=== PATIENT | female | born 2000 | race Hispanic/Latino ===

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

== ENCOUNTER 2023-07-17 20:46 | Emergency (ER) | payer MEDICAID ==
[~2023-07-17] VITALS: Ht 154.9 cm; Wt 89.4 kg
[~2023-07-17 20:46] MED LIST changes: +ACET325T51 PO; +AMOX500C2 PO; +ERYT1OIN7 OP
[2023-07-17 21:22] LABS: BASOPHILS # (AUTO) 0.03 K/uL (0.00-0.20); BASOPHILS % (AUTO) 0.6 % (0.0-5.0); EOSINOPHILS # (AUTO) 0.16 K/uL (0.00-0.70); EOSINOPHILS % (AUTO) 3.4 % (0.0-8.0); HEMATOCRIT 41.2 % (36-48); IMMATURE GRANULOCYTE ABSOLUTE 0.01 K/uL (0-1); LYMPHOCYTES # (AUTO) 1.7 K/uL (1.0-4.8); MEAN CORPUSCULAR HEMOGLOBIN 31.5 pg (27.0-33.0); MEAN CORPUSCULAR HGB CONC 35.7 g/dL (32.0-36.0); MEAN CORPUSCULAR VOLUME 88.2 fL (80-100); MONOCYTES # (AUTO) 0.6 K/uL (0.1-1.0); NEUTROPHILS # (AUTO) 2.2 K/uL (1.8-7.7); NEUTROPHILS % (AUTO) 46.8 % (40.0-77.0); PLATELET COUNT (AUTO) 254 K/uL (130-400); RED BLOOD CELL COUNT(AUTO) 4.67 MIL/uL (4.00-5.50); RED CELL DISTRIBUTION WIDTH 12.8 % (11.0-15.5); WHITE BLOOD COUNT (AUTO) 4.7 K/uL (4.8-10.8)
[2023-07-17 21:31] LABS: CREATININE 0.7 mg/dL (0.5-1.0); POTASSIUM 3.5 mmol/L (3.5-5.1)
[2023-07-17 21:34] LABS: APPEARANCE,URINE CLEAR (CLEAR); COLOR,URINE YELLOW (YELLOW)
[2023-07-17 21:35] LABS: ALBUMIN 3.6 g/dL (3.5-5.0); BILIRUBIN,TOTAL 0.5 mg/dL (0.2-1.0); GLUCOSE, URINE (UA) NEGATIVE (NEGATIVE); OCCULT BLOOD,URINE LARGE (NEGATIVE); PROTEIN,URINE TRACE mg/dL (NEGATIVE); TOTAL PROTEIN, SERUM 7.7 g/dL (6.0-8.3)
[2023-07-17 21:36] LABS: ADD UA MICROSCOPIC YES; BILIRUBIN,URINE SMALL mg/dL (NEGATIVE); KETONES,URINE TRACE mg/dL (NEGATIVE); LEUKOCYTE ESTERASE ,URINE NEGATIVE Leu/uL (NEGATIVE); NITRATE,URINE NEGATIVE (NEGATIVE)
[2023-07-17 21:37] LABS: HCG,QUALITATIVE URINE NEGATIVE (NEGATIVE)
[2023-07-17 21:47] VITALS: BP 119/73; PULSE 82; RESP 20; O2SAT 99
[2023-07-17 21:48] LABS: BACTERIA,URINE Rare /HPF (None Seen); WBC,URINE 0-1 /HPF (0-1)
[2023-07-17 21:49] LABS: SQUAMOUS EPITHELIAL CELL,UR Few /HPF (0-2)
[2023-07-17] MEDS ORDERED: OMEP40CA21 PO (22:00)
[2023-07-17] MEDS ORDERED: ONDA-104 PO (22:00)
== END 2023-07-17 22:10 | disposition home or self-care (01) ==
LOC: EDH 20:46
DX: K29.00 Acute gastritis without bleeding (principal); Z79.899 Other long term (current) drug therapy
CPT/HCPCS: 36415; 80053; 81001; 81025; 83690; 85025

== ENCOUNTER 2025-02-07 17:50 | Emergency (ER) | payer MEDICAID ==
[~2025-02-07] VITALS: Ht 152.4 cm; Wt 97.3 kg
[~2025-02-07 17:50] MED LIST changes: +ACET-3859 PO; -ACET325T51 PO; +OMEP40CA21 PO; +ONDA-104 PO
[2025-02-07 17:53] VITALS: BP 113/75; PULSE 111; RESP 18; TEMP 98.2
[2025-02-07] MEDS: BENZONATATE 100 MG CAPSULE PO STA (18:18)
[2025-02-07 18:19] LABS: SARS-CoV-2, RNA, NAAT NEGATIVE SARS CoV-2 (NEGATIVE)
[2025-02-07 18:20] VITALS: TEMP 98.8
[2025-02-07 18:24] LABS: INFLUENZA TYPE A Negative For Type A (NEGATIVE); INFLUENZA TYPE B Negative For Type B (NEGATIVE)
--- NOTE | 2025-02-07 18:45 | ERN ---
ED Note History of Present Illness Stated Complaint: COUGH Chief Complaint: Cough Time Seen by MD: 17:54 Time Seen by Midlevel: 18:00 Dictation: 24-year-old female coming in with complaints of cough, congestion, headache for the last four days. Denies any fever, nausea vomiting or diarrhea. Allergies: Coded Allergies: No Known Drug Allergies (Unverified Allergy, Unknown, 04/19/19) Home Meds Active Scripts Omeprazole (Omeprazole) 40 Mg Capsule.dr, 40 MG PO DAILY, #30 CAP Prov:YOANDY SEYMOUR MD 07/17/23 Ondansetron HCl (Ondansetron HCl) 4 Mg Tablet, 4 MG PO TIDP PRN for VOMITING, #20 TAB Prov:YOANDY SEYMOUR MD 07/17/23 Acetaminophen (Acetaminophen) 325 Mg Tablet, 650 MG PO Q4PRN PRN for PAIN, #50 TAB Prov:YOANDY SEYMOUR MD 03/16/22 Amoxicillin (Amoxicillin) 500 Mg Capsule, 500 MG PO TID for 10 Days, #30 CAP 0 Refills Prov:YOANDY SEYMOUR MD 03/16/22 Erythromycin Base (Erythromycin) 1 Gm Oint...g., 1 STRIP OP QID for 5 Days, #3.5 G Prov:TIFFANY DAIGLE MD 10/21/21 Phenazopyridine HCl (Pyridium) 200 Mg Tab, 200 MG PO TIDPC, #9 TAB TAKE WITH FOOD TO PREVENT STOMACH UPSET. Prov:FITTINGJULIAN 06/27/21 Cephalexin Monohydrate (Keflex) 500 Mg Cap, 500 MG PO QID for 7 Days, #28 CAP Prov:FITTINGJULIAN 06/27/21 Polyethylene Glycol 3350 (Miralax) 17 Gm Powd.pack, 17 GM PO DAILY, #1 CANISTER Prov:FITTINGJUILANP 05/10/21 Past Medical History Past Medical History: No Pertinent History Surgical History: None Family History: Negative Social History: Negative, Lives with family History: Not Applicable LMP: Jan 19, 2025 : 1 Para: 0 Aborts: 0 Review of System Dictation Constitutional: Generalized malaise Eyes: Negative for injury, pain,redness, and discharge ENT: Negative for injury,pain or swelling Cardiovascular: Negative for chest pain, palpitations, and edema Respiratory: Cough Abdomen/GI: Negative for abdominal pain, nausea, vomiting, diarrhea, and constipation Back: Negative for injury and pain : Negative for injury, bleeding and discharge MS/Extremity: Negative for injury and deformity Skin: Negative for rash, and discoloration Neuro: Headache without weakness, numbness tingling or seizures Psych: Negative for suicide ideation, homicidal ideation, and hallucinations Review of Systems: was completed Initial Vital Sign VS Vital Signs Date Time Temp Pulse Resp B/P (MAP) Pulse Ox O2 Delivery O2 Flow Rate FiO2 02/07/25 17:53 98.2 111 18 113/75 96 Room Air 0 Physical Exam Dictation General: awake, alert, NAD Head/Face: Normocephalic, atraumatic Eyes: PERRL, EOMI, vision at baseline ENT: oral cavity clear, TMs clear, no signs of infection Neck: Trachea midline, supple, no nuchal rigidity Cardiovascular: RRR, normal S1/S2, No MRGs, no JVD Respiratory: CTAB, no respiratory distress, No rales or wheezes Abdomen: Soft, non-tender, non-distended, normal bowel sounds, no guarding or rebound. Skin: Warm, dry, normal turgor, no rash MS/Extremity: Pulses equal, no cyanosis, neurovascular intact, FROM Neuro: COAx4, GCS 15, strength 5/5, CN 2-12 intact, normal cerebellar exam, normal gait, Psych: Normal behavior, mood, and affect normal Results (Laboratory/Radiology) Laboratory/Radiology Laboratory Tests Test 02/07/25 18:00 Influenza Type A Antigen Negative For Type A Influenza Type B Antigen Negative For Type B SARS-CoV-2, RNA, NAAT NEGATIVE SARS CoV-2 Labs Reviewed?: Yes ED Course ED Course Orders Procedure Category Date Status Time Covid Rna Naat LAB 02/07/25 Complete 17:56 Influenza Type A & B, LAB 02/07/25 Complete Rapid 17:56 Benzonatate 100 Mg PHA 02/07/25 Complete Capsule (Tessalon 100 17:56 Ketorolac PHA 02/07/25 Complete Tromethamine 15mg/Ml 18:00 Acetaminophen 325 Tab PHA 02/07/25 Complete (Tylenol 325mg Tab 18:00 Current Medications Medications (Trade) Dose Ordered Sig/Moraima Route PRN Reason Start Time Stop Time Status Last Admin Dose Admin Acetaminophen (TYLenol 325MG TAB) 650 mg ONCE ONCE PO 02/07/25 18:00 02/07/25 18:01 DC 02/07/25 18:20 Benzonatate (Tessalon 100mg Caps) 200 mg ONCE STAT PO 02/07/25 17:56 02/07/25 17:58 DC 02/07/25 18:18 Ketorolac Tromethamine (toRADol) 15 mg ONCE ONCE IM 02/07/25 18:00 02/07/25 18:01 DC 02/07/25 18:21 Vital Signs Date Time Temp Pulse Resp B/P (MAP) Pulse Ox O2 Delivery O2 Flow Rate FiO2 02/07/25 18:20 98.8 02/07/25 17:53 98.2 111 18 113/75 96 Room Air 0 Medical Decision Making MDM MDM:24-year-old female coming in with complaints of cough, congestion, headache for the last four days. Denies any fever, nausea vomiting or diarrhea. Swabs are negative for flu and COVID. We will then likely patient's symptoms related to a viral syndrome. Educated to take [id number] symptomatic control. And follow up with PCP in 1-2 days. Patient verbalized understanding, answered all questions. Differential diagnosis: COVID, flu, viral syndrome Rationale: Tests considered and ordered secondary to shared decision making include: Previous outside records reviewed: Old ER visits. Risk of complication and/or morbidity or mortality of patient management: None Medications-Per medication reconciliation Need for hospitalization: Patient does not meet criteria for hospitalization. Need for emergency major/minor surgery: No There are no social concerns with this patient. Prescription drug management Prescriptions will include symptomatic care Patient's prior external medical records from other ER visits were reviewed by me as indicated. Prior testing and results from previous visits were reviewed. Prior tests were taken into account with medical decision making and resource utilization, independent historian/historians were used to obtain complete medical history. I independently interpreted the test that were performed, results were reviewed by me and considered findings on radiology if ordered. Medical management and examination interpretation discussions were had by me with other qualified healthcare professionals as indicated for the patient's care. DX & DISP Disposition: Discharge Departure Impression: Primary Impression: Viral syndrome Condition: Stable Additional Instructions: Your swabs are negative for COVID and flu. Take [id number] medication to treat your symptoms like Tylenol, Robitussin, Maalox, Sudafed. Follow up with your primary in 1-2 days. Referrals: KURT HUDSON (PCP) Time of Disposition: 18:44 I have reviewed the case, and I agree with, Diagnosis and Plan YOLANDA SKAGGS [facility] Feb 07, 2025 18:45
== END 2025-02-07 18:53 | disposition home or self-care (01) ==
LOC: EDH 17:50
DX: B34.9 Viral infection, unspecified (principal); Z79.899 Other long term (current) drug therapy; Z20.822 Contact with and (suspected) exposure to COVID-19
CPT/HCPCS: 99283; 87635; 87804 ×2; 96372; J1885